=== PATIENT | male | born 2000 | race Two or more races ===

== ENCOUNTER 2021-04-09 10:57 | Emergency (ER) | payer BC ==
[~2021-04-09] VITALS: Ht 180.3 cm; Wt 83.9 kg
[2021-04-09] MEDS ORDERED: MONODOX100 MG PO (13:43)
== END 2021-04-09 14:05 | disposition home or self-care (01) ==
LOC: ER 10:57
DX: N45.3 Epididymo-orchitis (principal); N50.812 Left testicular pain